=== PATIENT | male | born 1965 ===

== ENCOUNTER → 2018-05-31 22:01 | Outpatient (REF) | payer OTHER, MEDICAID, SELFPAY ==
[2018-05-31 22:40] LABS: Add Manual Diff / Slide Review NO; Basophils Percent Auto 0.6 % (0-2); Eosinophils Percent Auto 4.5 % (2-4); Hematocrit 51.3 % (41-53); Hemoglobin 17.2 g/dL (13.5-17.5); Lymphocytes Percent Auto 26.2 % (25-40); Mean Corpuscular HGB Conc 33.6 % (30-36); Mean Corpuscular Hemoglobin 29.1 PG (26-34); Mean Corpuscular Volume 86.6 fL (80-100); Monocytes Percent Auto 9.9 % (3-14); Neutrophils Absolute Auto 2500 /uL (3000-5900); Neutrophils Percent Auto 58.8 % (50-75); Platelet Count 242 X10^3/uL (150-400); Red Blood Cell Count 5.93 X10^6/uL (4.5-5.9); Red Cell Distribution Width 14.4 % (11.6-14.8); White Blood Cell Count 4.3 X10^3/uL (4.5-11.0)
[2018-05-31 22:48] LABS: Alanine Aminotransferase 34 IU/L (21-72); Albumin 4.5 g/dL (3.5-5.0); Albumin Globulin Ratio 1.5 (1.0-2.8); Alkaline Phosphatase 59 U/L (38-126); Aspartate Aminotransferase 46 IU/L (17-59); BUN Creatinine Ratio 13.3 (6-22); Bilirubin Total 1.2 mg/dL (0.2-1.3); Blood Urea Nitrogen 16 mg/dL (9-20); Calcium 9.7 mg/dL (8.4-10.2); Carbon Dioxide 29 mmol/L (22-32); Chloride 100 mmol/L (98-107); Estimated Glomerular Filt Rate > 60.0 mL/min (>60); Globulin 3.1 g/dL (1.7-4.1); Glucose 94 mg/dL (70-100); HEMOLYSIS 17 (0-50); Potassium 4.7 mmol/L (3.4-5.1); Sodium 141 mmol/L (137-145); Total Protein 7.6 g/dL (6.3-8.2)
[2018-06-02 15:23] LABS: Estradiol 34 pg/mL (< 40)
[2018-06-02 19:05] LABS: Sex Hormone Binding Globulin 28 nmol/L (10-50)
[2018-06-05 10:09] LABS: Testosterone Free 289.2 pg/mL (35.0-155.0); Testosterone Total 1242 ng/dL (250-1100)
[2018-06-05 14:45] LABS: PSA Total 1.64 ng/mL (< 4.01)
== END ==
LOC: LAB 22:01
PROVIDERS: Visit Provider Naturopath
DX: E29.1 Testicular hypofunction (principal); F90.0 Attention-deficit hyperactivity disorder, predominantly inattentive type; F41.9 Anxiety disorder, unspecified
CPT/HCPCS: 80053; 82670; 84153; 84154; 84270; 84402; 84403; 85025

== ENCOUNTER → 2018-09-04 21:24 | Outpatient (REF) | payer OTHER, MEDICAID, SELFPAY ==
[2018-09-04 22:10] LABS: Add Manual Diff / Slide Review NO; Basophils Absolute Auto 0 /uL (0-100); Basophils Percent Auto 0.9 % (0-2); Eosinophils Absolute Auto 100 /uL (0-450); Eosinophils Percent Auto 3.1 % (2-4); Hematocrit 51.4 % (41-53); Hemoglobin 16.6 g/dL (13.5-17.5); Lymphocytes Absolute Auto 1300 /uL (1100-4500); Lymphocytes Percent Auto 29.5 % (25-40); Mean Corpuscular HGB Conc 32.2 % (30-36); Mean Corpuscular Hemoglobin 28.6 PG (26-34); Mean Corpuscular Volume 88.8 fL (80-100); Monocytes Absolute Auto 400 /uL (0-900); Monocytes Percent Auto 9.8 % (3-14); Neutrophils Absolute Auto 2500 /uL (1500-7000); Neutrophils Percent Auto 56.7 % (50-75); Platelet Count 218 X10^3/uL (150-400); Red Blood Cell Count 5.79 X10^6/uL (4.5-5.9); White Blood Cell Count 4.4 X10^3/uL (4.5-11.0)
[2018-09-07 10:02] LABS: Estradiol 31 pg/mL (< 40)
== END ==
LOC: LAB 21:24
PROVIDERS: Visit Provider Naturopath
DX: E29.1 Testicular hypofunction (principal)
CPT/HCPCS: 36415; 82670; 84153; 84154; 84270; 84402; 84403; 85025